=== PATIENT | male | born 1955 | race Caucasian/White ===

== ENCOUNTER 2017-01-29 12:35 | Day surgery (SDC) | payer BC ==
[2017-01-29] MEDS ORDERED: Neomycin/Polymy/Dex OPHTH.OIN* 3.5 GM ONE (14:03)
[2017-01-29] MEDS ORDERED: Cyclopentolate 1% OPTH.SOL* 2 ML BTL ONE (14:03)
[2017-01-29] MEDS ORDERED: Buffered Lidocaine 0.9% SYRIN* 5 ML/SYR SYRINGE ONE (14:03)
[2017-01-29] MEDS ORDERED: Tetracaine 0.5% OPTH.SOL 4 ML* 1 DROP BTL ONE (14:03)
[2017-01-29] MEDS ORDERED: Tropicamide 1% OPTH.SOL* BTL ONE (14:03)
[2017-01-29] MEDS ORDERED: Lidocaine 1% MPF* 2 ML VIAL ONE (14:03)
[2017-01-29] MEDS ORDERED: Phenylephrine 2.5% OPTH.SOL* 2 ML BTL ONE (14:03)
[2017-01-29] MEDS ORDERED: Flurbiprofen 0.03% OPTH.SOL* 2.5 ML BTL ONE (14:03)
[2017-01-29] MEDS ORDERED: fentaNYL* 50 MCG/ML 2 ML VIAL (100 MCG VIAL) ONE (14:27)
[2017-01-29] MEDS ORDERED: Midazolam* 1 MG/ML 2 ML VIAL (2 MG) ONE ×2 (14:28→14:54)
[2017-01-29 15:22] VITALS: BP 147/82
--- NOTE | 2017-01-30 10:10 | OP ---
DATE OF OPERATION: 01/29/17 [facility] DATE OF : 53 SURGEON: Dr. Fito Carrillo. TRAIN EXAMINER: None. ANESTHESIOLOGIST: Delmer Price MD ANESTHESIA: Topical with intravenous sedation. PRE-OP DIAGNOSIS: Cataract, right eye. POST-OP DIAGNOSIS: Cataract, right eye. OPERATIVE PROCEDURE: Phacoemulsification and cataract extraction with posterior chamber intraocular lens implant, right eye. COMPLICATIONS: None. BLOOD LOSS: None. DESCRIPTION OF PROCEDURE: The patient was brought to the operating room and received a small amount of intravenous sedation. A drop of Tetracaine was placed in his right eye. He was prepped and draped in the usual sterile fashion for ophthalmic surgery and attention was directed to the right eye where a speculum was placed. A paracentesis was created at the 11 o'clock position and 0.1 cc of 1 percent preservative-free Lidocaine was injected into the anterior chamber followed by DisCoVisc. The eye was digitally stabilized while a 2.75 mm keratome was used to create a triplanar clear corneal incision at the 9 o'clock position. A continuous curvilinear capsulorrhexis was created with a cystotome and Utrata forceps. BSS on a cannula was used to hydrodissect the lens from the capsule. Phacoemulsification was performed in a divide-and- conquer technique to create four fragments which were removed. Residual cortical material was removed with irrigation and aspiration. DisCoVisc was used to inflate the capsular bag and an SN60WF 22.5 diopter lens was folded and inserted into the capsular bag. DisCoVisc was removed using irrigation and aspiration. BSS on a cannula was used to hydrate the corneal stroma and seal the wound. At the end of the case the pupil was round and the lens was centered. The eye was of normal pressure and the wound was water tight. The speculum was removed and topical Maxitrol ointment was placed on the surface of the eye. The eye was closed, patched and shielded and the patient was sent to the recovery room in stable condition with post operative instructions and follow-up appointment given. [id number] #: [id number] MTDD
== END 2017-01-29 15:36 | disposition home or self-care (01) ==
LOC: OREAST 12:35
PROVIDERS: ATTEND Ophthalmology
DX: H25.11 Age-related nuclear cataract, right eye (principal)
CPT/HCPCS: A9270-GY; J2250; J3010; V2632

== ENCOUNTER 2019-10-18 08:16 | Emergency (ER) | payer MEDICARE ==
--- OUTSIDE RECORDS SUMMARY | 2019-10-18 08:22 | XMS REPORT | Continuity of Care Document ---
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 Active Problems Provider Date Essential hypertension Sean Gutierrez DO [facility] Onset: 08/29/2016 Social History Type Date Description Comments Sex Unknown ETOH Use Denies alcohol use Tobacco Use Start: Unknown Patient has never smoked Recreational Drug Use Denies Drug Use Smoking Status Reviewed: 09/18/19 Patient has never smoked Exercise Type/Frequency Walks daily Exercise Type/Frequency Gym run on treadmill and weight lifting Allergies, Adverse Reactions, Alerts Active Allergies Reaction Severity Comments Date Hydrochlorothiazide Dizziness 08/27/2016 Medications Active Medications SIG Qnty Indications Ordering Provider Date Prednisone 3 tabs for 3 16tabs H81.4 Kelvin Marinelli, 09/18/2019 20mg Tablets days then 2 M.D. tabs for 2 days then 1 tab for 2 days Simvastatin 1 by mouth Unknown 20mg Tablets every day Allopurinol 1 by mouth Unknown 100mg Tablets every day Losartan Potassium 1 by mouth Unknown 50mg every day Tablets Metoprolol Succinate 1 by mouth Unknown ER every day 50mg Tablets ER 24HR Immunizations Description No Information Available Vital Signs Date Vital Result Comment 09/18/2019 8:23am Height 67.5 inches 5'7.50" Weight 222.00 lb Heart Rate 76 /min BP Systolic Sitting 138 mmHg BP Diastolic Sitting 84 mmHg BMI (Body Mass Index) 34.3 kg/m2 08/29/2016 12:34pm Height 67.5 inches 5'7.50" Weight 211.00 lb with shoes Heart Rate 74 /min BP Systolic Sitting 140 mmHg Ra lrg cuff BP Diastolic Sitting 78 mmHg Ra lrg cuff BP Systolic Standing 144 mmHg LA lrg cuf BP Diastolic Standing 80 mmHg LA lrg cuf BP Systolic Lying Down 140 mmHg Ra lrg cuff BP Diastolic Lying Down 82 mmHg Ra lrg cuff BMI (Body Mass Index) 32.6 kg/m2 Results Description No Information Available Procedures Description No Information Available Medical Devices Description No Information Available Encounters Description No Information Available Assessments Date Code Description Provider 09/18/2019 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 at [facility] [id number]/18/2019 - Patrick Hester, NPH81.4 Vertigo of central originNew Medication:Prednisone 20 mg - 3 tabs for 3 days then 2 tabs for 2 days then 1 tab for 2 days Functional Status Description No Information Available Mental Status Description No Information Available Referrals Description No Information Available
[2019-10-18 08:26] VITALS: BP 154/91
--- NOTE | 2019-10-18 08:39 | UC ---
Eye Complaint HPI - HPI Summary HPI Summary: 64 year old male with PMH + for HTN presents with b/l eye redness, irritation, drainage x several days. Has been treating with wet tea bags without help. + eyes "glued shut" in AM, has to take shower to loosen them. No pain, no photophobia, no vision changes. no h/o glaucoma, no prior eye problems. + mild sinus discomfort currently. - History of Current Complaint Stated Complaint: EYES IRRITATION Time Seen by Provider: 10/18/19 08:20 Hx Obtained From: Patient Onset/Duration: Sudden Onset, Lasting Days Timing: Constant Severity Currently: None Pain Intensity: 0 Pain Scale Used: 0-10 Numeric Location of Injury: Other - no injury Aggravating Factor(s): Other - no contact lenses Associated Signs And Symptoms: Positive: Drainage (Purulent), Swelling - Allergies/Home Medications Allergies/Adverse Reactions: Allergies Allergy/AdvReac Type Severity Reaction Status Date / Time No Known Allergies Allergy Verified 10/18/19 08:26 Home Medications: Home Medications Allopurinol TAB* [Zyloprim TAB*] 100 mg PO QPM 06/13/15 [History Confirmed 10/17] Losartan Potassium [Cozaar] 50 mg PO QAM 06/13/15 [History Confirmed 10/18/19] Metoprolol Succinate XL TAB* [Toprol XL TAB*] 50 mg PO QAM 06/13/15 [History Confirmed 10/18/19] Simvastatin TAB(NF) [Zocor(NF)] 20 mg PO DAILY 06/13/15 [History Confirmed 10/17] Ciprofloxacin 0.3% OPTH.SRINIVAS* [Cipro 0.3% Opth*] 2 drop BOTH EYES Q4H #1 btl 03/31 [Rx] PMH/Surg Hx/FS Hx/Imm Hx Previously Healthy: Yes - Surgical History Surgical History: Yes Surgery Procedure, Year, and Place: 01/2017, [facility] cataract, [facility] - Family History Known Family History: Positive: Non-Contributory - Social History Occupation: Retired Alcohol Use: None Substance Use Type: None Smoking Status (MU): Never Smoked Tobacco Review of Systems All Other Systems Reviewed And Are Negative: Yes Constitutional: Positive: Negative Eyes: Positive: Drainage, Eye Redness. Negative: Blurred Vision, Diplopia, Photophobia ENT: Positive: Sinus Congestion Respiratory: Positive: Negative Cardiovascular: Positive: Negative Motor: Positive: Negative Neurovascular: Positive: Negative Neurological/Mental Status: Negative: Headache Psychological: Positive: Negative Is Patient Immunocompromised?: No Physical Exam Triage Information Reviewed: Yes Appearance: Well-Appearing, No Pain Distress, Well-Nourished Vital Signs: Initial Vital Signs Temp 97.1 F 10/18/19 08:22 Pulse 66 10/18/19 08:22 Resp 16 10/18/19 08:22 BP 154/91 10/18/19 08:22 Pulse Ox 97 10/18/19 08:22 Vital Signs Reviewed: Yes Eyes: Positive: Conjunctiva Inflamed, Discharge - purulent at corner of right eye, Other: - EMOI, pERRLA. no photophobia ENT: Positive: Hearing grossly normal Neck: Positive: Supple, Nontender, No Lymphadenopathy. Negative: Nuchal Rigidity, Enlarged Nodes @ Musculoskeletal Exam: Normal Neurological Exam: Normal Psychological Exam: Normal Skin Exam: Normal Skin: Negative: Rashes Eye Complaint Course/Dx - Course Course Of Treatment: Bacterial conjunctivitis - Eye drops- 2 drops to each eye every 4 hours for 7 days. Do not have to do at night - Motrin/ Tylenol as needed - Over the counter eye drops for symptoms. Only use natural tears/ saline drops. - SYmptoms should improve within 24-48 hours. Return if no improvement - Differential Dx/Diagnosis Differential Diagnosis/HQI/PQRI: Conjunctivitis, Uveitis Provider Diagnosis: Conjunctivitis Discharge ED - Sign-Out/Discharge Documenting (check all that apply): Patient Departure All imaging exams completed and their final reports reviewed: No Studies - Discharge Plan Condition: Good Disposition: HOME Prescriptions: Ciprofloxacin 0.3% OPTH.SRINIVAS* [Cipro 0.3% Opth*] 2 drop BOTH EYES Q4H #1 btl Patient Education Materials: Conjunctivitis (ED) Referrals: Aiden Jiménez MD [Primary Care Provider] - Additional Instructions: - Eye drops- 2 drops to each eye every 4 hours for 7 days. Do not have to do at night - Motrin/ Tylenol as needed - Over the counter eye drops for symptoms. Only use natural tears/ saline drops. - SYmptoms should improve within 24-48 hours. Return if no improvement - Billing Disposition and Condition Condition: GOOD Disposition: Home - Attestation Statements Provider Attestation: I was available for consult. This patient was seen by the KATHRYN. The patient was not presented to , seen by or examined by -Carl Hernández MD
== END 2019-10-18 08:58 | disposition home or self-care (01) ==
LOC: UCEAST 08:16
DX: H10.9 Unspecified conjunctivitis (principal); B96.89 Other specified bacterial agents as the cause of diseases classified elsewhere; I10 Essential (primary) hypertension; R09.89 Other specified symptoms and signs involving the circulatory and respiratory systems; Z79.899 Other long term (current) drug therapy
CPT/HCPCS: 99212; G0463